=== PATIENT | female | born 1970 | race Caucasian/White ===

== ENCOUNTER 2022-05-05 14:22 | Outpatient (CLI) | payer BC, SELFPAY ==
--- NOTE | 2022-05-05 14:40 | CRLHL7_ITS ---
For Patients: As a result of the Cures Act, medical imaging exams and procedure reports are released immediately into your electronic medical record. You may view this report before your referring provider. If you have questions, please contact your health care provider. BILATERAL SCREENING MAMMOGRAM WITH COMPUTER-AIDED DETECTION AND TOMOSYNTHESIS TECHNIQUE: CC and MLO views were obtained. These mammographic images have been obtained using full-field digital technique. These mammographic images were interpreted with the benefit of computer-aided detection. Breast Tomosynthesis was used in this interpretation. COMPARISON FILM: 01/21/21, 01/18/20, 01/05/19. FINDINGS: There are scattered areas of fibroglandular density IMPRESSION: There is no radiographic evidence for malignancy. ASSESSMENT: BI-RADS Category 1: Negative RECOMMENDATION: Routine screening mammogram in 1 year. A lay language report of this examination will be provided to the patient. Tommie Bobo M.D. Diagnostic Radiologist [email or web address] AMIE/[email or web address] / be/Dictated by: Tommie Bobo MD @ 05/06/2022 12:39:00 PM (Electronically Signed)
== END 2022-05-05 14:23 | disposition home or self-care (01) ==
LOC: MAMMO 14:22
PROVIDERS: PCP Family Medicine; Visit Provider Registered Nurse
DX: Z12.31 Encounter for screening mammogram for malignant neoplasm of breast (principal)
CPT/HCPCS: 77063; 77067

== ENCOUNTER 2023-05-06 15:24 | Outpatient (CLI) | payer BC, SELFPAY ==
--- NOTE | 2023-05-06 15:40 | CRLHL7_ITS ---
For Patients: As a result of the Cures Act, medical imaging exams and procedure reports are released immediately into your electronic medical record. You may view this report before your referring provider. If you have questions, please contact your health care provider. BILATERAL SCREENING MAMMOGRAM WITH COMPUTER-AIDED DETECTION AND TOMOSYNTHESIS TECHNIQUE: CC and MLO views were obtained. These mammographic images have been obtained using full-field digital technique. These mammographic images were interpreted with the benefit of computer-aided detection. Breast Tomosynthesis was used in this interpretation. COMPARISON FILM: 01/21/21, 01/18/20, 01/05/19. FINDINGS: There are scattered areas of fibroglandular density IMPRESSION: There is no radiographic evidence for malignancy. ASSESSMENT: BI-RADS Category 1: Negative RECOMMENDATION: Routine screening mammogram in 1 year. A lay language report of this examination will be provided to the patient. Tommie Bobo M.D. Diagnostic Radiologist [email or web address] Transcribed: 6:07 p.[email or web address] moore/Dictated by: Tommie Bobo MD @ 05/07/2023 12:15:00 PM (Electronically Signed)
== END 2023-05-06 15:25 | disposition home or self-care (01) ==
LOC: MAMMO 15:26
PROVIDERS: PCP Family Medicine; Visit Provider Family Medicine
DX: Z12.31 Encounter for screening mammogram for malignant neoplasm of breast (principal)
CPT/HCPCS: 77063; 77067

== ENCOUNTER 2024-05-10 15:31 | Outpatient (CLI) | payer BC, SELFPAY | END 2024-05-10 15:32 | disposition home or self-care (01) | LOC: NFLDREF 15:32 | PROVIDERS: PCP Family Medicine; Visit Provider Registered Nurse | DX: Z01.419 Encounter for gynecological examination (general) (routine) without abnormal findings (principal); Z13.29 Encounter for screening for other suspected endocrine disorder | CPT/HCPCS: 84443 ==

== ENCOUNTER 2024-05-16 18:17 | Outpatient (CLI) | payer BC, SELFPAY ==
--- NOTE | 2024-05-16 18:20 | CRLHL7_ITS ---
For Patients: As a result of the Century Cures Act, medical imaging exams and procedure reports are released immediately into your electronic medical record. You may view this report before your referring provider. If you have questions, please contact your health care provider. BILATERAL SCREENING MAMMOGRAM WITH COMPUTER-AIDED DETECTION AND TOMOSYNTHESIS TECHNIQUE: CC and MLO views were obtained. These mammographic images have been obtained using full-field digital technique. These mammographic images were interpreted with the benefit of computer-aided detection. Breast Tomosynthesis was used in this interpretation. COMPARISON FILM: 05/06/23, 05/05/22, 04/21/21. FINDINGS: There are scattered areas of fibroglandular density. IMPRESSION: There is no radiographic evidence for malignancy. ASSESSMENT: BI-RADS Category 1: Negative RECOMMENDATION: Routine screening mammogram in 1 year. A lay language report of this examination will be provided to the patient. Tommie Bobo M.D. Diagnostic Radiologist [email or web address] SP/Dictated by: Tommie Bobo MD @ 05/17/2024 11:40:00 AM (Electronically Signed)
== END 2024-05-16 18:18 | disposition home or self-care (01) ==
LOC: MAMMO 18:21
PROVIDERS: PCP Physician Assistant Medical; Visit Provider Physician Assistant Medical
DX: Z12.31 Encounter for screening mammogram for malignant neoplasm of breast (principal)
CPT/HCPCS: 77063; 77067

== ENCOUNTER 2024-06-01 14:53 | Outpatient (CLI) | payer BC, SELFPAY ==
--- NOTE | 2024-06-01 15:00 | CRLHL7_ITS ---
For Patients: As a result of the Century Cures Act, medical imaging exams and procedure reports are released immediately into your electronic medical record. You may view this report before your referring provider. If you have questions, please contact your health care provider. DXA BONE MINERAL DENSITY STUDY Reason for exam: Family history of osteoporosis. Current height (in): 67. Weight (lb): 155. Menopause age: 43. Ethnicity: White. 1. Have you had a previous hip or vertebral fracture? Yes. 2. Have you had any fractures during your adult life which did not result from significant trauma (e.g., auto accident)? Yes. 3. Did either of your parents have a hip fracture? No. 4. Do you smoke? No. 5. Have you ever taken Glucocorticoids? No. 6. Do you have rheumatoid arthritis? No. 7. Do you have secondary osteoporosis? No. 8. Do you drink 3 or more alcoholic drinks per day? No. 9. Are you being treated for osteoporosis? No. 10. Have you ever taken any of the following medications: Actonel, Evista, Fosamax, Miacalcin, Reclast, Boniva, Forteo, HRT (i.e. estrogen/hormone therapy), Protelos, Prolia, Vitamin D, Calcium, other ??? please specify. ANSWER: Yes, Vitamin D and calcium. 11. Do you have any of the following medical conditions: Anorexia or bulimia, asthma or emphysema, end stage renal disease, hyperparathyroidism, any seizure disorders, cancer, inflammatory bowel diseases, hysterectomy, other ??? please specify. ANSWER: No. 12. What was your maximum height (inches)? 68. 13. Do you perform weight bearing exercise regularly? Yes. 14. Do you regularly consume dairy products? Yes. 15. Do you drink caffeinated beverages? No. 16. At what age did your period start? 13. 17. Are you premenopausal? No. 18. How many full term pregnancies have you had? 2. 19. Have you ever missed your period for more than 6 months in a row (not including or menopause)? Yes. TECHNIQUE: Bone mineral density study was performed using the scroll kit. FINDINGS: The results of the study expressed as bone mineral density (BMD) are as follows: Lumbar spine L1 to L4: BMD: 0.920 g/cm2. T-score: -1.2. Z-score: 0.0. Neck Left: BMD: 1.074 g/cm2. T-score: 2.0. Z-score: 3.1. Right: BMD: 0.845 g/cm2. T-score: -0.0. Z-score: 1.1. Total Left: BMD: 1.021 g/cm2. T-score: 0.6. Z-score: 1.4. Right: BMD: 0.972 g/cm2. T-score: 0.2. Z-score: 1.0. IMPRESSION: Osteopenia. *Comparison exams done prior to 01/2020 were performed on different unit, [facility]. Tommie Bobo M.D. Diagnostic Radiologist [email or web address] SP/Dictated by: Tommie Bobo MD @ 06/02/2024 12:09:00 PM (Electronically Signed)
== END 2024-06-01 14:54 | disposition home or self-care (01) ==
LOC: RAD 14:54
PROVIDERS: PCP Physician Assistant Medical; Visit Provider Registered Nurse
DX: Z82.69 Family history of other diseases of the musculoskeletal system and connective tissue (principal); M85.89 Other specified disorders of bone density and structure, multiple sites
CPT/HCPCS: 77080

== ENCOUNTER 2024-10-16 05:19 | Inpatient (IN) | payer BC, SELFPAY ==
[2024-10-16] VITALS (26 sets, daily range): BP systolic 94–136; BP diastolic 56–84; PULSE 54–75; RESP 16–20; TEMP 36.8–36.9; O2SAT 94–100; BMI 23.5; BMI 24.2
[2024-10-16 05:36] LABS: Appearance Urine Clear (Clear); Bilirubin Urine Negative (Negative); Blood Urine Negative (Negative); Color Urine Yellow (Yellow); Glucose Urine Negative (Negative); Ketones Urine Trace (Negative); Leukocyte Esterase Urine Negative (Negative); Nitrite Urine Negative (Negative); Protein Urine Negative (Negative); Specific Gravity Urine <= 1.005 (1.000-1.030); Urobilinogen Urine 0.2 (0.2-1.0); pH Urine 5.5 (5.0-8.5)
[2024-10-16 05:46] LABS: Bacteria Urine Few; RBC Urine 0-2 (0-2); Squamous Epithelial Cell Urine Few (None-Few)
--- NOTE | 2024-10-16 05:48 | ED.GENADULT ---
HPI - General Adult General Chief complaint: Abdominal Pain Stated complaint: lower abdominal pain Time Seen by Provider: 10/16/24 05:47 History of Present Illness HPI narrative: CC: Lower Abdominal Pain pt. had pancreas ultrasound at [facility] october. started having bad pain last night. denies n/v, diarrhea, fevers. h/o diverticulitis also. 54-year-old woman presenting to the emergency department with concern marked increase in abdominal pain. She indicates left mid to low abdomen. 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 Ultimately receiving pancreatic biopsies which have not been formally resulted but suspected to be benign. She reports relatively well since biopsies nearly 4 days ago until last night with marked increase in pain. Prior to this significant increase was struggling to eat has would experiencing bloating and increased discomfort on her mild diet. Not had fever. She is nauseated. Has not been vomiting. Also suspect some constipation. No hematochezia or melena described. Hurts in particular sleep on her left side. Related Data Home Medications ?Medication ?Instructions ?Recorded ?Confirmed No Known Home Medications 10/16/24 10/16/24 Allergies Allergy/AdvReac Type Severity Reaction Status Date / Time morphine Allergy Unknown Verified 10/16/24 06:41 Review of Systems Status of ROS: Reports: 6 or more systems reviewed and unremarkable except as noted in History and below [facility] Medical History Diverticulitis ?K57.92 - Diverticulitis of intestine, part unspecified, without perforation or abscess without bleeding (ICD-10) History of abnormal cervical Pap smear ?Z87.42 - Personal history of other diseases of the female genital tract (ICD-10) Surgical History S/P cholecystectomy ?Z90.49 - Acquired absence of other specified parts of digestive tract (ICD-10) Family History Father Alcohol dependence Mother Osteoporosis Cervical cancer Uterine cancer Family/Other Heart disease Breast cancer Grandmother Osteoporosis Other Sleep apnea Social History Narrative: She works for the [email or web address]. Exercises 3 times a week. . Nonsmoker. Occasional alcohol use, denies illicit drug use What is your current living situation?: I presently have a place to live Problems where you live: no known problems In the past 12 months, utilities in danger of being shut off: no In past 12 months, lack of transportation kept you from medical appts, meetings, work, or getting things needed for daily living: no In the past 12 mos, have been you worried that your food would run out before you had money to buy more?: never true In the past 12 mos, the food you bought just didn't last and you didn't have money to buy more?: never true Smoking Status: Never smoker Second hand tobacco smoke exposure: No How often do you have a drink containing alcohol: never AUDIT-C Alcohol total score: 0 Non-prescribed substance use: denies use How often does anyone, including family, friends and others, physically hurt you: never How often does anyone, including family, friends and others, insult or talk down to you: never How often does anyone, including family, friends and others, threaten you with harm: never How often does anyone, including family, friends and others, scream or curse at you: never Exam Narrative: Exam Narrative: Pleasant. Calm. NAD. Skin is warm and dry. Well-perfused peripherally. No lower extremity edema. Lungs appear to be clear. Heart in regular rate and rhythm the murmur rub or gallop. Abdomen is soft and she winces, gasps a little with palpation in the epigastrium and a little bit into the right upper abdomen/hypogastrium. Pain also in the left mid abdomen to palpation. Const: Vital Signs, click to edit/add: Vital Signs - 24 hr 10/16/24 05:39 10/16/24 06:14 10/16/24 06:19 Temperature 98.4 F 98.4 F Pulse Rate 62 Pulse Rate [Right Pulse Oximeter] 75 Respiratory Rate 18 18 Blood Pressure 117/78 Blood Pressure [Ri ght Upper Arm] 136/83 Pulse Oximetry 99 97 Oxygen Delivery Me thod Room Air 10/16/24 06:44 Temperature Pulse Rate 62 Pulse Rate [Right Pulse Oximeter] Respiratory Rate 18 Blood Pressure 113/74 Blood Pressure [Ri ght Upper Arm] Pulse Oximetry 99 Oxygen Delivery Me thod Documenting provider has reviewed patient's vital signs: yes Course Vital Signs Vital signs: Initial Vital Signs Temperature 98.4 F 10/16/24 05:39 Temperature Source Temporal Artery Scan 10/16/24 05:39 Pulse Rate 75 10/16/24 05:39 Respiratory Rate 18 10/16/24 05:39 Blood Pressure 136/83 10/16/24 05:39 Blood Pressure Mean 100 10/16/24 05:39 Blood Pressure Position Sitting 10/16/24 05:39 Pulse Oximetry 99 10/16/24 05:39 Oxygen Delivery Method Room Air 10/16/24 05:39 Vital Signs Temperature 98.4 F 10/16/24 05:39 Pulse Rate 75 10/16/24 05:39 Respiratory Rate 18 10/16/24 05:39 Blood Pressure 136/83 10/16/24 05:39 Pulse Oximetry 99 10/16/24 05:39 Oxygen Delivery Method Room Air 10/16/24 05:39 Temperature 98.4 F 10/16/24 06:14 Pulse Rate 62 10/16/24 06:44 Respiratory Rate 18 10/16/24 06:44 Blood Pressure 113/74 10/16/24 06:44 Pulse Oximetry 99 10/16/24 06:44 Oxygen Delivery Method Room Air 10/16/24 05:39 Medications Administered Medications: Discontinued Medications Generic Name Dose Route Start Last Admin Trade Name Freq PRN Reason Stop Dose Admin Sodium Chloride 1,000 mls @ 1,000 mls/hr 10/16/24 06:01 10/16/24 08:33 0.9 % Sodium Chloride 1000 Ml IV 10/16/24 07:00 Infused .Q1H ONE Infusion Ketorolac Tromethamine 30 mg 10/16/24 06:11 10/16/24 06:14 Ketorolac 30 Mg/Ml Inj IVP 10/16/24 06:12 30 mg ONCE ONE Administration Ondansetron HCl 4 mg 10/16/24 06:01 10/16/24 06:09 Ondansetron 2 Mg/Ml Inj IVP 10/16/24 06:02 4 mg ONCE ONE Administration Medical Decision Making MDM Narrative Medical decision making narrative: Certainly may be having some pancreatitis. I do not think physical exam suggests peritonitis. Also perhaps diverticulitis as she is recalling that the initial pain presentation for diverticulitis was in the left mid abdomen. Would have concerns of postoperative/procedural bleeding in differential as well. Without recent procedure would otherwise consult labs and consider retreating for diverticulitis. Requesting IV contrasted CT imaging of abdomen pelvis Initiating IV fluids and antiemetic. Did not think she initially wanted some pain medication but I think this is primarily because of nausea or otherwise does not feel well from it but was ultimately given dose of ketorolac and upon later reassessment felt markedly improved. Labs generally reassuring though with lipase of 911, perhaps not entirely unexpected. CRP is elevated 2.9. White count was not elevated and hemoglobin was 11.9 INDICATION: Left mid abdominal pain and upper abdominal pain. Recent pancreas biopsy and diverticulitis. COMPARISON: None TECHNIQUE: CT examination of the abdomen and pelvis was performed following the uneventful intravenous administration of 74 cc of Isovue 370. Thin section axial images were obtained from the lung bases through the pubic symphysis. Oral contrast was not administered. Please note that all CT scans at this facility use dose modulation, iterative reconstruction, and/or weight-based dosing when appropriate to reduce radiation dose to as low as reasonably achievable. FINDINGS: LUNG BASES: The lung bases as visualized appear normal.The heart size is normal at the lung bases. LIVER/BILIARY SYSTEM:The liver is normal in size. There is no focal mass. There is mild biliary ductal dilation. This is probably due to reservoir phenomena from prior cholecystectomy. Correlate with LFTs and follow-up as clinically appropriate.The gallbladder is surgically absent. ADRENALS: Normal KIDNEYS, URETERS and BLADDER:The kidneys appear normal. No visible mass, calculus or hydronephrosis. The ureters and bladder as visualized appear normal. SPLEEN:Normal appearance. PANCREAS: There is a lesion in the pancreatic tail measuring about 2.5 centimeters. This is presumably the lesion that was recently biopsied. There is inflammatory change posterior and inferior to the pancreatic body and tail primarily in the lesser sac. This could be due to pancreatitis or could be due to post biopsy change. This area measures about 5.1 by 2.9 by 3.8 centimeters. This does not have a well-formed wall as would be anticipated in a collection. RETROPERITONEUM and MESENTERY: There is no mass, adenopathy or aortic aneurysm. GASTROINTESTINAL SYSTEM: There is no evidence of diverticulitis, colitis, mechanical obstruction, or appendicitis. The small bowel as visualized appears normal.Diverticulosis. No evidence of acute diverticulitis. PELVIS: No mass, adenopathy or free fluid. OSSEOUS STRUCTURES and ABDOMINAL WALL: There is an age-appropriate appearance of the osseous structures.No significant abdominal wall defect. OTHER: No free fluid or free air. IMPRESSION: 1. Mild intra and extrahepatic biliary ductal dilation favored reservoir phenomena from prior cholecystectomy. Correlate with LFTs and follow-up as clinically appropriate. No visible periampullary mass or choledocholithiasis. 2. Pancreatic tail mass measuring 2.5 centimeters. This is presumably the lesion that was recently biopsied as opposed to postbiopsy change. 3. Inflammatory change posterior and inferior to the pancreatic body and tail, primarily in the lesser sac measuring 5.1 x 2.9 x 3.8 centimeters. This could be inflammatory change associated with pancreatitis or could be postprocedural hemorrhage or inflammatory change. No evidence of active bleeding on this examination. No well-formed wall as would be anticipated in a developed/mature collection. 4. Diverticulosis but no evidence of diverticulitis. No evidence of colitis or obstruction. Please note that all CT scans at this facility use dose modulation, iterative reconstruction, and/or weight-based dosing when appropriate to reduce radiation dose to as low as reasonably achievable. Dictated by Levi Arnold MD @ 10/16/2024 6:56:46 AM I did initially reach out to our general surgeon whose attention is required elsewhere at the moment. Did also then call to [facility], Dr. Cordova has been paged to discuss findings in imaging. Images have also been sent up to [facility] system. Anticipating likely discharge. Difficult to advised though is not very tolerant rather light diet already. Did not have antiemetics or pain medication available however and so would make some available if moving to discharge. Medical Records Medical records reviewed: Yes I reviewed the patient's medical records Lab Data Lab results reviewed: Yes I reviewed the patient's lab results Labs: Lab Results 10/16/24 10/16/24 Range/Units 05:30 06:10 WBC 6.84 (4.50-11.00) K/uL RBC 3.93 L (4.00-5.20) m/uL Hgb 11.9 L (12.0-16.0) gm/dL Hct 35.1 (33.0-51.0) % MCV 89 (80-100) fL MCH 30 (26-34) pg MCHC 34 (32-36) gm/dL RDW Coeff of Alexx 11.6 (11.5-15.5) % Plt Count 198 (140-440) K/uL Neut % (Auto) 65.6 (42.0-72.0) % Lymph % (Auto) 22.1 (20-44) % Worth % (Auto) 8.2 (0.0-11.0) % Eos % (Auto) 2.9 (0.0-7.0) % Baso % (Auto) 0.3 (0.0-3.0) % Neut # (Auto) 4.49 (1.7-7.0) K/uL Lymph # (Auto) 1.51 (0.90-2.90) K/uL Worth # (Auto) 0.60 (0.00-0.90) K/UL Eos # (Auto) 0.20 (0.00-0.50) K/uL Baso # (Auto) 0.02 (0.00-0.30) K/uL Abs Immat Gran (auto) 0.06 (0.00-0.30) K/uL Imm/Tot Granulo (auto) 0.9 % Sodium 136 (135-149) mmol/L Potassium 3.8 (3.6-5.1) mmol/L Chloride 102 (96-114) mmol/L Carbon Dioxide 24 (20-32) mmol/L Anion Gap 10 (7-15) mEq/L BUN 11 (7-30) mg/dL Creatinine 0.6 (0.5-1.5) mg/dL Estimated Creat Clear 101.81 Estimated GFR 105 ml/min Glucose 95 (60-115) mg/dL Calcium 8.9 (8.4-10.6) mg/dL Total Bilirubin 1.5 (0.1-1.5) mg/dL Direct Bilirubin 0.3 (0.0-0.5) mg/dL AST 20 (12-35) U/L ALT 17 (4-35) U/L Alkaline Phosphatase 64 (40-150) U/L C-Reactive Protein 2.9 H (0.5-1.0) mg/dL Total Protein 6.8 (6.0-8.3) g/dL Albumin 3.9 (3.3-5.0) g/dL Lipase 911 H (23-300) U/L Urine Color Yellow (Yellow) Urine Appearance Clear (Clear) Urine pH 5.5 (5.0-8.5) Ur Specific [place] <= 1.005 (1.000-1.030) Urine Protein Negative (Negative) Urine Glucose (UA) Negative (Negative) Urine Ketones Trace A (Negative) Urine Blood Negative (Negative) Urine Nitrite Negative (Negative) Urine Bilirubin Negative (Negative) Urine Urobilinogen 0.2 (0.2-1.0) Ur Leukocyte Esterase Negative (Negative) Urine RBC 0-2 (0-2) Urine WBC 2-5 (0-5) Ur Squamous Epith Cells Few (None-Few) Urine Bacteria Few A (None) Discharge Plan Discharge Clinical Impression: Other acute postprocedural pain, Pancreatitis Patient Disposition: Home w/ Parent or Adult Condition: Improved Additional Instructions: Would continue to focus on hydration along with very light diet. Might try electrolyte drinks like reconstituted powdered Gatorade or Powerade. Prescribing Zofran for nausea as well as Percocet, an opiate, from [facility]. Prescriptions: No Action No Known Home Medications Follow Up/Referrals: Valerie Nuñez PA-C [Referring] - Stand Alone Forms: [employer] Info Instructions
[2024-10-16] MEDS: ONDANSETRON 2 MG/ML inj 4 MG IVP ×2 (06:09→20:05)
[2024-10-16] MEDS: 0.9 % SODIUM CHLORIDE 1000 ml 1,000 ML IV (06:09)
[2024-10-16] MEDS: KETOROLAC 30 MG/ML inj IVP ×3 (06:14→18:43)
[2024-10-16 06:22] LABS: Basophils Absolute Auto 0.02 K/uL (0.00-0.30); Basophils Percent Auto 0.3 % (0.0-3.0); Eosinophils Percent Auto 2.9 % (0.0-7.0); Hematocrit 35.1 % (33.0-51.0); Hemoglobin* 11.9 gm/dL (12.0-16.0); Immature Granulocytes Abs Auto 0.06 K/uL (0.00-0.30); Immature Granulocytes Pct Auto 0.9 %; Lymphocytes Absolute Auto 1.51 K/uL (0.90-2.90); Lymphocytes Percent Auto 22.1 % (20-44); Mean Corpuscular HGB Conc 34 gm/dL (32-36); Mean Corpuscular Hemoglobin 30 pg (26-34); Mean Corpuscular Volume 89 fL (80-100); Monocytes Percent Auto 8.2 % (0.0-11.0); Neutrophils Absolute Auto 4.49 K/uL (1.7-7.0); Neutrophils Percent Auto 65.6 % (42.0-72.0); Platelet Count* 198 K/uL (140-440); RDW Coefficient of Variation % 11.6 % (11.5-15.5); Red Blood Count 3.93 m/uL (4.00-5.20); White Blood Count* 6.84 K/uL (4.50-11.00)
[2024-10-16 06:25] LABS: Slide Review Reflex No
[2024-10-16 06:31] LABS: Albumin* 3.9 g/dL (3.3-5.0); Chloride* 102 mmol/L (96-114)
[2024-10-16 06:32] LABS: Potassium* 3.8 mmol/L (3.6-5.1); Sodium* 136 mmol/L (135-149)
[2024-10-16 06:34] LABS: Blood Urea Nitrogen* 11 mg/dL (7-30); Creatinine* 0.6 mg/dL (0.5-1.5); Est. Creatinine Clearance* 101.81; Estimated Glomerular Filt Rate 105 ml/min
[2024-10-16 06:35] LABS: Alanine Aminotransferase* 17 U/L (4-35); Alkaline Phosphatase* 64 U/L (40-150); Anion Gap 10 mEq/L (7-15); Aspartate Amino Transferase* 20 U/L (12-35); Bilirubin Direct* 0.3 mg/dL (0.0-0.5); Bilirubin Total* 1.5 mg/dL (0.1-1.5); Calcium* 8.9 mg/dL (8.4-10.6); Carbon Dioxide* 24 mmol/L (20-32); Glucose* 95 mg/dL (60-115); Lipase* 911 U/L (23-300); Total Protein* 6.8 g/dL (6.0-8.3)
[2024-10-16 06:38] LABS: C Reactive Protein* 2.9 mg/dL (0.5-1.0)
[2024-10-16] MEDS: LACTATED RINGERS 1000 ML 1,000 ML IV (09:05)
--- NOTE | 2024-10-16 12:56 | PM.IMHP1 ---
Hospitalist- H&P: HPI History of Present Illness Time Seen by Provider: 12:25 Date Seen: 10/16/24 Chief complaint: lower abdominal pain Narrative: Kayla Oconnell is a 54 year old female with a history of diverticulitis and pancreatic ductal stricture with localized atrophy who recently underwent endoscopic ultrasound and biopsy on 10/12/2024 at [facility] by Dr. Cordova. Anthony is a previously healthy female who had a laparoscopic cholecystectomy in 1986, diverticulitis about 6 years ago and then recurrent diverticulitis about a month ago. On the CT scan done for diverticulitis about a month ago, pancreatic stricture was seen for which she had an MRCP. There is also a small mass is seen for which she then underwent biopsy by endoscopic ultrasound as above. She felt very constipated Wednesday and Wednesday. She did have a small bowel movement on Wednesday and has had not had anything substantial to eat or drink since her procedure because any time she eats, she immediately feels very bloated. She has had a constant 4/10 pain in her epigastrium and left lower quadrant since the procedure. She has had mild nausea, but no vomiting. Denies diarrhea. She has not had any fevers, but does have chills and night sweats. Sitting up puts pressure on her abdomen which feels worse. She has not found anything that makes it better. She notes a history of nausea and feeling very unwell when taking morphine when she had her gallbladder out, but has not tried any other narcotics. She is agreeable to Dilaudid as needed, but does not think that she will try any of it. She notes that the Toradol she got in the ER seemed to help and would like more of that. Review of Systems Status of ROS: Reports: 10 or more systems reviewed and unremarkable except as noted in History and below [facility] Medical History (Updated 10/16/24 @ 13:31 by Kim Tineo MD) Pancreatic mass ?K86.89 - Other specified diseases of pancreas (ICD-10) Pancreatic duct stricture ?K86.89 - Other specified diseases of pancreas (ICD-10) Diverticulitis ?K57.92 - Diverticulitis of intestine, part unspecified, without perforation or abscess without bleeding (ICD-10) History of abnormal cervical Pap smear ?Z87.42 - Personal history of other diseases of the female genital tract (ICD-10) Surgical History S/P cholecystectomy ?Z90.49 - Acquired absence of other specified parts of digestive tract (ICD-10) Family History Father Alcohol dependence Mother Osteoporosis Cervical cancer Uterine cancer Family/Other Heart disease Breast cancer Grandmother Osteoporosis Other Sleep apnea Social History Narrative: She works for [employer]. Exercises 3 times a week. . Nonsmoker. Occasional alcohol use, denies illicit drug use What is your current living situation?: I presently have a place to live Problems where you live: no known problems Problems where you live details: none In the past 12 months, utilities in danger of being shut off: no In past 12 months, lack of transportation kept you from medical appts, meetings, work, or getting things needed for daily living: no In the past 12 mos, have been you worried that your food would run out before you had money to buy more?: never true In the past 12 mos, the food you bought just didn't last and you didn't have money to buy more?: never true Highest level of school completed/degree received: Bachelor's degree Smoking Status: Never smoker Do you use any of these nicotine containing products: None Second hand tobacco smoke exposure: No How often do you have a drink containing alcohol: 2-4 times a month AUDIT-C Alcohol total score: 2 Non-prescribed substance use: denies use Caffeine: Yes (cup or two coffee in morning) How often does anyone, including family, friends and others, physically hurt you: never How often does anyone, including family, friends and others, insult or talk down to you: never How often does anyone, including family, friends and others, threaten you with harm: never How often does anyone, including family, friends and others, scream or curse at you: never service: No Meds Home Medications and Allergies Home Medications ?Medication ?Instructions ?Recorded ?Confirmed ?Type No Known Home Medications 10/16/24 10/16/24 History Allergies Allergy/AdvReac Type Severity Reaction Status Date / Time morphine Allergy Unknown Verified 10/16/24 06:41 Exam Narrative: Exam Narrative: General: No acute distress. Awake alert oriented x3. HEENT: Normocephalic atraumatic, pupils equally round and reactive to light and accommodation. Oropharynx clear. Mucous membranes are moist. No cervical lymphadenopathy, thyromegaly or carotid bruits. No JVD. Cardiovascular: Regular rate and rhythm. No murmurs, gallops, or rubs. Chest: No increased work of breathing. Clear to auscultation bilaterally. No crackles or wheezes. Abdomen: Bowel sounds hypoactive. Soft, mildly distended, tender in the epigastrium and left lower quadrant. No hepatosplenomegaly or masses. No inguinal lymphadenopathy. Extremities: No edema, no cyanosis or clubbing. Skin: No jaundice, no pallor, no rashes. Const: Vital Signs, click to edit/add: Vital Signs - 24 hr 10/16/24 05:39 10/16/24 06:14 10/16/24 06:19 Temperature 98.4 F 98.4 F Pulse Rate 62 Pulse Rate [Right Pulse Oximeter] 75 Pulse Rate [Right Radial] Respiratory Rate 18 18 Blood Pressure 117/78 Blood Pressure [Ri ght Arm] Blood Pressure [Ri ght Upper Arm] 136/83 Pulse Oximetry 99 97 [facility] 10/16/24 06:44 10/16/24 07:00 10/16/24 07:02 Temperature Pulse Rate 62 55 L 57 L Pulse Rate [Right Pulse Oximeter] Pulse Rate [Right Radial] Respiratory Rate 18 Blood Pressure 113/74 100/61 Blood Pressure [Ri ght Arm] Blood Pressure [Ri ght Upper Arm] Pulse Oximetry 99 96 97 Oxygen Delivery Tn thod 10/16/24 07:15 10/16/24 07:30 10/16/24 07:45 Temperature Pulse Rate 57 L 55 L 54 L Pulse Rate [Right Pulse Oximeter] Pulse Rate [Right Radial] Respiratory Rate Blood Pressure Blood Pressure [Ri ght Arm] Blood Pressure [Ri ght Upper Arm] Pulse Oximetry 96 96 94 Oxygen Delivery Tn thod 10/16/24 08:00 10/16/24 08:02 10/16/24 08:15 Temperature Pulse Rate 60 57 L 56 L Pulse Rate [Right Pulse Oximeter] Pulse Rate [Right Radial] Respiratory Rate Blood Pressure 102/59 L Blood Pressure [Ri ght Arm] Blood Pressure [Ri ght Upper Arm] Pulse Oximetry 97 96 95 Oxygen Delivery Me thod 10/16/24 08:30 10/16/24 08:45 10/16/24 09:00 Temperature Pulse Rate 55 L 62 57 L Pulse Rate [Right Pulse Oximeter] Pulse Rate [Right Radial] Respiratory Rate Blood Pressure Blood Pressure [Ri ght Arm] Blood Pressure [Ri ght Upper Arm] Pulse Oximetry 97 96 97 Oxygen Delivery Me thod 10/16/24 09:02 10/16/24 09:15 10/16/24 09:30 Temperature Pulse Rate 55 L 56 L 55 L Pulse Rate [Right Pulse Oximeter] Pulse Rate [Right Radial] Respiratory Rate Blood Pressure 104/62 Blood Pressure [Ri ght Arm] Blood Pressure [Ri ght Upper Arm] Pulse Oximetry 97 98 100 Oxygen Delivery Tn thod 10/16/24 09:45 10/16/24 10:00 10/16/24 10:02 Temperature Pulse Rate 59 L 56 L 58 L Pulse Rate [Right Pulse Oximeter] Pulse Rate [Right Radial] Respiratory Rate Blood Pressure 108/64 Blood Pressure [Ri ght Arm] Blood Pressure [Ri ght Upper Arm] Pulse Oximetry 96 99 99 Oxygen Delivery Tn thod 10/16/24 10:15 10/16/24 10:30 10/16/24 12:12 Temperature 98.5 F Pulse Rate 55 L 66 Pulse Rate [Right Pulse Oximeter] Pulse Rate [Right Radial] 57 L Respiratory Rate 20 Blood Pressure Blood Pressure [Ri ght Arm] 122/84 Blood Pressure [Ri ght Upper Arm] Pulse Oximetry 99 99 100 [facility] Hospitalist - H&P: Result Labs Labs: Short CBC 10/16/24 Range/Units 06:10 WBC 6.84 (4.50-11.00) K/uL Hgb 11.9 L (12.0-16.0) gm/dL Hct 35.1 (33.0-51.0) % Plt Count 198 (140-440) K/uL BMP 10/16/24 06:10 Sodium 136 Potassium 3.8 Chloride 102 Carbon Dioxide 24 BUN 11 Creatinine 0.6 Glucose 95 Calcium 8.9 Liver Function 10/16/24 Range/Units 06:10 Total Bilirubin 1.5 (0.1-1.5) mg/dL Direct Bilirubin 0.3 (0.0-0.5) mg/dL AST 20 (12-35) U/L ALT 17 (4-35) U/L Alkaline Phosphatase 64 (40-150) U/L Albumin 3.9 (3.3-5.0) g/dL Urine 10/16/24 Range/Units 05:30 Urine Color Yellow (Yellow) Urine Appearance Clear (Clear) Urine pH 5.5 (5.0-8.5) Ur Specific [place] <= 1.005 (1.000-1.030) Urine Protein Negative (Negative) Urine Glucose (UA) Negative (Negative) Ordering Physician: Tommie Gross M.D. Date of Service: 10/16/24 Procedure(s): CT abdomen pelvis w con Accession Number(s): [id number] cc: Germán Barlow M.D.; Tommie Gross M.D.~ For Patients: As a result of the Cures Act, medical imaging exams and procedure reports are released immediately into your electronic medical record. You may view this report before your referring provider. If you have questions, please contact your health care provider. INDICATION: Left mid abdominal pain and upper abdominal pain. Recent pancreas biopsy and diverticulitis. COMPARISON: None TECHNIQUE: CT examination of the abdomen and pelvis was performed following the uneventful intravenous administration of 74 cc of Isovue 370. Thin section axial images were obtained from the lung bases through the pubic symphysis. Oral contrast was not administered. Please note that all CT scans at this facility use dose modulation, iterative reconstruction, and/or weight-based dosing when appropriate to reduce radiation dose to as low as reasonably achievable. FINDINGS: LUNG BASES: The lung bases as visualized appear normal.The heart size is normal at the lung bases. LIVER/BILIARY SYSTEM:The liver is normal in size. There is no focal mass. There is mild biliary ductal dilation. This is probably due to reservoir phenomena from prior cholecystectomy. Correlate with LFTs and follow-up as clinically appropriate.The gallbladder is surgically absent. ADRENALS: Normal KIDNEYS, URETERS and BLADDER:The kidneys appear normal. No visible mass, calculus or hydronephrosis. The ureters and bladder as visualized appear normal. SPLEEN:Normal appearance. PANCREAS: There is a lesion in the pancreatic tail measuring about 2.5 centimeters. This is presumably the lesion that was recently biopsied. There is inflammatory change posterior and inferior to the pancreatic body and tail primarily in the lesser sac. This could be due to pancreatitis or could be due to post biopsy change. This area measures about 5.1 by 2.9 by 3.8 centimeters. This does not have a well-formed wall as would be anticipated in a collection. RETROPERITONEUM and MESENTERY: There is no mass, adenopathy or aortic aneurysm. GASTROINTESTINAL SYSTEM: There is no evidence of diverticulitis, colitis, mechanical obstruction, or appendicitis. The small bowel as visualized appears normal.Diverticulosis. No evidence of acute diverticulitis. PELVIS: No mass, adenopathy or free fluid. OSSEOUS STRUCTURES and ABDOMINAL WALL: There is an age-appropriate appearance of the osseous structures.No significant abdominal wall defect. OTHER: No free fluid or free air. IMPRESSION: 1. Mild intra and extrahepatic biliary ductal dilation favored reservoir phenomena from prior cholecystectomy. Correlate with LFTs and follow-up as clinically appropriate. No visible periampullary mass or choledocholithiasis. 2. Pancreatic tail mass measuring 2.5 centimeters. This is presumably the lesion that was recently biopsied as opposed to postbiopsy change. 3. Inflammatory change posterior and inferior to the pancreatic body and tail, primarily in the lesser sac measuring 5.1 x 2.9 x 3.8 centimeters. This could be inflammatory change associated with pancreatitis or could be postprocedural hemorrhage or inflammatory change. No evidence of active bleeding on this examination. No well-formed wall as would be anticipated in a developed/mature collection. 4. Diverticulosis but no evidence of diverticulitis. No evidence of colitis or obstruction. Please note that all CT scans at this facility use dose modulation, iterative reconstruction, and/or weight-based dosing when appropriate to reduce radiation dose to as low as reasonably achievable. Dictated by Levi Arnold MD @ 10/16/2024 6:56:46 AM (Electronically Signed) Assessment and Plan Assessment and plan (1) Pancreatitis: Problem comment: - Post procedural pancreatitis from EUS with biopsy on 10/12/24 - complicated by known pancreatic ductal stricture - Admit for bowel rest, IVF: NS@75cc/h, IV toradol and hydromorphone prn pain, IV zofran prn nausea. Anticipate will be able to advance to clears tomorrow morning. Recheck CBC, CMP in am. Status: Acute
[2024-10-16] MEDS: 0.9 % SODIUM CHLORIDE 1000 ml 1,000 ML 150 ML IV ×2 (14:29→20:05)
[2024-10-16] MEDS: HYDROmorphone 0.5 mg/0.5 ml inj IVP (20:05)
--- NOTE | 2024-10-16 22:59 | PC.NURSE ---
Patient awake during the shift. Up, ambulating the halls independently. Pain adequately managed with scheduled medications. Patient requested PRN pain medication prior to bedtime. PRN zofran given as well, but patient denies nausea/vomiting. PAtient NPO. Vitally stable.
[2024-10-17] MEDS: HYDROmorphone 0.5 mg/0.5 ml inj IVP ×2 (00:58→06:23)
[2024-10-17 01:00] VITALS: BP 118/65; PULSE 75; RESP 16; TEMP 36.8; O2SAT 99
[2024-10-17] MEDS: 0.9 % SODIUM CHLORIDE 1000 ml 1,000 ML 150 ML IV ×2 (02:32→09:20)
[2024-10-17] MEDS: KETOROLAC 30 MG/ML inj IVP (02:33)
[2024-10-17 06:20] VITALS: BP 99/52; PULSE 63; RESP 16; TEMP 36.5; O2SAT 100
[2024-10-17 06:40] LABS: Basophils Absolute Auto 0.02 K/uL (0.00-0.30); Basophils Percent Auto 0.4 % (0.0-3.0); Eosinophils Percent Auto 3.5 % (0.0-7.0); Hematocrit 30.8 % (33.0-51.0); Hemoglobin* 10.1 gm/dL (12.0-16.0); Immature Granulocytes Abs Auto 0.01 K/uL (0.00-0.30); Immature Granulocytes Pct Auto 0.2 %; Lymphocytes Absolute Auto 1.58 K/uL (0.90-2.90); Mean Corpuscular HGB Conc 33 gm/dL (32-36); Mean Corpuscular Hemoglobin 30 pg (26-34); Mean Corpuscular Volume 93 fL (80-100); Monocytes Percent Auto 8.7 % (0.0-11.0); Neutrophils Absolute Auto 3.35 K/uL (1.7-7.0); Neutrophils Percent Auto 59.2 % (42.0-72.0); Platelet Count* 149 K/uL (140-440); RDW Coefficient of Variation % 11.7 % (11.5-15.5); Red Blood Count 3.32 m/uL (4.00-5.20); White Blood Count* 5.65 K/uL (4.50-11.00)
[2024-10-17 06:41] LABS: Slide Review Reflex No
[2024-10-17 06:50] LABS: Albumin* 3.1 g/dL (3.3-5.0); Chloride* 108 mmol/L (96-114); Potassium* 4.1 mmol/L (3.6-5.1); Sodium* 137 mmol/L (135-149)
[2024-10-17 06:52] LABS: Anion Gap 7 mEq/L (7-15); Bilirubin Total* 1.2 mg/dL (0.1-1.5); Blood Urea Nitrogen* 12 mg/dL (7-30); Carbon Dioxide* 22 mmol/L (20-32); Creatinine* 0.6 mg/dL (0.5-1.5); Est. Creatinine Clearance* 101.81; Estimated Glomerular Filt Rate 105 ml/min
[2024-10-17 06:53] LABS: Alanine Aminotransferase* 29 U/L (4-35); Alkaline Phosphatase* 85 U/L (40-150); Aspartate Amino Transferase* 41 U/L (12-35); Glucose* 60 mg/dL (60-115); Total Protein* 5.6 g/dL (6.0-8.3)
[2024-10-17 07:00] VITALS: BP 104/55; PULSE 60; RESP 20; TEMP 36.8; O2SAT 96
--- NOTE | 2024-10-17 07:09 | PC.NURSE ---
End of shift summary: Pt has been A&O, afebrile and VSS. She reported pain in between a 2-4 in the left upper quadrant overnight. PRN Dilaudid given x2 doses, last @ 0620 and PRN Toradol given last @ 0230. PIV in right wrist infusing NS @ 150 mL/hr. She is independent in her room. Adequate voids overnight, no BM. Pt reports no passing gas. She denies nausea or dizziness. ?
--- NOTE | 2024-10-17 11:02 | PM.IMPN1 ---
Progress Note: A&P Assessment and plan (1) Pancreatitis: Problem details: - Post procedural pancreatitis from EUS with biopsy on 10/12/24 - complicated by known pancreatic ductal stricture - 10/16 Admit for bowel rest, IVF: NS@150cc/h, IV toradol and hydromorphone prn pain, IV zofran prn nausea. Anticipate will be able to advance to clears tomorrow morning. Recheck CBC, CMP in am. - 10/17 Advance diet to clears this morning and to fulls later today if able. Decrease IVF to 75cc/hr. Continue prn meds for nausea and pain. Encourage ambulation. Status: Acute (2) LFTs abnormal: Problem details: - 10/17 mildly elevated AST. May be related to post procedure pancreatitis and being NPO. I have reviewed her meds. Trend. Status: Acute Subjective Time Seen by Provider: 09:15 Date Seen: 10/17/24 Interval history: Anthony used two doses of narcotic last night and felt less painful enough to get a good night's sleep. She is feeling much better this morning. She is thirsty, not hungry, feels less bloated and less sharp pain, but still has a feeling of pressure in her epigastrium and LUQ. She notes persistently dark urine. She has ambulated in the hallway. No BM yet. Exam Narrative: Exam Narrative: General: No acute distress. Awake alert oriented. No jaundice. No pallor. Cardiovascular: Regular rate and rhythm. No murmurs, gallops, or rubs. Chest: No increased work of breathing. Clear to auscultation bilaterally. No crackles or wheezes. Abdomen: Bowel sounds present. Soft, less distended, mildly tender in the epigastrium and left lower quadrant, less than yesterday. No hepatosplenomegaly or masses. Const: Vital Signs, click to edit/add: Vital Signs - 24 hr 10/16/24 12:12 10/16/24 15:00 10/16/24 15:00 Temperature 98.5 F Pulse Rate [Pulse Oximeter] Pulse Rate [Right Radial] 57 L 60 Respiratory Rate 20 18 18 Blood Pressure [Le ft Arm] Blood Pressure [Ri ght Arm] 122/84 Pulse Oximetry 100 98 Oxygen Delivery Me thod Room Air Room Air 10/16/24 15:00 10/16/24 19:00 10/17/24 01:00 Temperature 98.4 F 98.2 F Pulse Rate [Pulse Oximeter] 75 Pulse Rate [Right Radial] 60 63 Respiratory Rate 18 16 16 Blood Pressure [Le ft Arm] Blood Pressure [Ri ght Arm] 94/56 L 105/56 L Pulse Oximetry 98 98 Oxygen Delivery Me thod Room Air Room Air 10/17/24 01:00 10/17/24 01:00 10/17/24 06:20 Temperature 98.3 F 97.7 F Pulse Rate [Pulse Oximeter] 63 Pulse Rate [Right Radial] 75 Respiratory Rate 16 16 16 Blood Pressure [Le ft Arm] 118/65 99/52 L Blood Pressure [Ri ght Arm] Pulse Oximetry 99 99 100 Oxygen Delivery Me thod Room Air Room Air Room Air 10/17/24 07:00 10/17/24 07:00 10/17/24 07:00 Temperature 98.2 F Pulse Rate [Pulse Oximeter] 60 60 Pulse Rate [Right Radial] Respiratory Rate 20 20 Blood Pressure [Le ft Arm] 104/55 L Blood Pressure [Ri ght Arm] Pulse Oximetry 96 96 Oxygen Delivery Me thod Room Air Room Air Labs Labs: Laboratory Results - last 24 hr 10/17/24 06:03 WBC 5.65 RBC 3.32 L Hgb 10.1 L Hct 30.8 L MCV 93 MCH 30 MCHC 33 RDW Coeff of Alexx 11.7 Plt Count 149 Neut % (Auto) 59.2 Lymph % (Auto) 28.0 [place] % (Auto) 8.7 Eos % (Auto) 3.5 Baso % (Auto) 0.4 Neut # (Auto) 3.35 Lymph # (Auto) 1.58 [place] # (Auto) 0.50 Eos # (Auto) 0.20 Baso # (Auto) 0.02 Abs Immat Gran (auto) 0.01 Imm/Tot Granulo (auto) 0.2 Sodium 137 Potassium 4.1 Chloride 108 Carbon Dioxide 22 Anion Gap 7 BUN 12 Creatinine 0.6 Estimated Creat Clear 101.81 Estimated GFR 105 Glucose 60 Calcium 8.0 L Total Bilirubin 1.2 AST 41 H ALT 29 Alkaline Phosphatase 85 Total Protein 5.6 L Albumin 3.1 L
[2024-10-17 15:00] VITALS: BP 129/59; PULSE 60; PULSE 65; RESP 20; TEMP 36.7; O2SAT 100
[2024-10-17] MEDS: 0.9 % SODIUM CHLORIDE 1000 ml 1,000 ML 75 ML IV ×2 (15:52→18:07)
[2024-10-17] MEDS: ACETAMINOPHEN 500 MG TABLET 1000 MG PO (16:47)
--- NOTE | 2024-10-17 18:36 | PC.NURSE ---
End of Shift Note: Patient has had a good day. We have slowly been advancing her diet. Appears to be going ok she does complain of a little bloating and pain is being controlled with tylenol. She is up and ambulating several times around the nursing unit. Will continue to monitor until next shift arrives.
[2024-10-17 19:44] VITALS: BP 113/65; PULSE 54; RESP 16; TEMP 37; O2SAT 98
--- NOTE | 2024-10-17 22:36 | PC.NURSE ---
Patient alert, awake and vitally stable during the shift. Pain adequately managed with PRN tylenol. Patient tolerating full liquids for diet. Tried mashed potatoes and turkey tonight and did not finish meal due to stomach issues. Up ambulating the halls during the shift. Plan to discharge tomorrow.
[2024-10-17 23:35] VITALS: BP 109/61; PULSE 60; RESP 16; TEMP 36.7; O2SAT 98
[2024-10-18] MEDS: ACETAMINOPHEN 500 MG TABLET 1000 MG PO (01:05)
[2024-10-18 01:10] VITALS: BP 126/68; PULSE 61; RESP 16; TEMP 36.4; O2SAT 100
[2024-10-18 06:15] LABS: Basophils Percent Auto 0.5 % (0.0-3.0); Eosinophils Percent Auto 6.9 % (0.0-7.0); Hematocrit 29.6 % (33.0-51.0); Hemoglobin* 9.8 gm/dL (12.0-16.0); Immature Granulocytes Pct Auto 0.7 %; Lymphocytes Percent Auto 33.8 % (20-44); Mean Corpuscular HGB Conc 33 gm/dL (32-36); Mean Corpuscular Hemoglobin 30 pg (26-34); Mean Corpuscular Volume 91 fL (80-100); Monocytes Percent Auto 8.6 % (0.0-11.0); Neutrophils Percent Auto 49.5 % (42.0-72.0); Platelet Count* 152 K/uL (140-440); RDW Coefficient of Variation % 11.6 % (11.5-15.5); Red Blood Count 3.25 m/uL (4.00-5.20)
[2024-10-18 06:24] LABS: Slide Review Reflex No
[2024-10-18 06:27] LABS: Chloride* 110 mmol/L (96-114); Potassium* 3.9 mmol/L (3.6-5.1); Sodium* 140 mmol/L (135-149)
--- NOTE | 2024-10-18 06:27 | PC.NURSE ---
Pt alert and oriented x3. Pt reports 1/10 pain in abdomen, pain managed with PRN medication.? Pt is up Ind in room, voiding, passing gas and tolerating a clear liquid diet. Pt reports urine color is back to her normal and reports feeling more hydrated. Pt had jello, saltines, marge crackers, and applesauce, pt tolerating fair, pt reports bloating with mild increase in pain. ?
[2024-10-18 06:29] LABS: Anion Gap 4 mEq/L (7-15); Blood Urea Nitrogen* 4 mg/dL (7-30); Carbon Dioxide* 26 mmol/L (20-32); Creatinine* 0.5 mg/dL (0.5-1.5); Est. Creatinine Clearance* 122.17; Estimated Glomerular Filt Rate 110 ml/min
[2024-10-18 06:30] LABS: Alanine Aminotransferase* 66 U/L (4-35); Alkaline Phosphatase* 122 U/L (40-150); Aspartate Amino Transferase* 50 U/L (12-35); Calcium* 8.2 mg/dL (8.4-10.6); Glucose* 102 mg/dL (60-115); Total Protein* 5.5 g/dL (6.0-8.3)
[2024-10-18 07:00] VITALS: BP 125/89; PULSE 59; RESP 18; TEMP 36.6; O2SAT 100
--- NOTE | 2024-10-18 09:14 | P.DS_ITS ---
DS: Providers Provider Date Seen: 10/18/24 Date of admission: 10/16/24 12:56 Primary care physician: Germán Barlow MD Admitting Clinician: Vini Schultz MD Attending Physician on discharge: Kendra Gallagher MD Date of Discharge: 10/18/24 DS: Diagnosis Discharge Diagnosis (1) Pancreatitis: Status: Acute Problem details: - Post procedural pancreatitis from EUS with biopsy on 10/12/24 - complicated by known pancreatic ductal stricture - admitted 10/16 for IVFs, bowel rest, antiemetics, IV pain control - advanced to clear liquid diet 10/17, full liquids later in the day - tolerating low fat diet on 10/18, medically appropriate for d/c home with GI/General Surgery f/u (2) LFTs abnormal: Status: Acute Problem details: - 10/17: mildly elevated AST - 10/18: both AST and ALT mildly elevated, normal bilirubin. Alk phos normal, asymptomatic - unclear clinical significance, outpatient f/u DS: Summary Hospital Course Hospital Course: Kayla was admitted to the hospital on 10/16 for postprocedural pancreatitis (known possible complication of recent biopsy, was in touch with her GI provider, Dr Cordova, postop). Received IV fluids and IV antiemetics, as well as pain management on hospital day 1, then slowly advanced liquid diet on hospital day 2. Noted to have mildly elevated AST and ALT, asymptomatic. Bilirubin and alk-phos normal. Follow-up with PCP to trend these as an outpatient. Tolerating low-fat diet and ready for discharge home on hospital day 3 with close follow-up. Status at Discharge Functional status at discharge: independent ambulation Overall status at discharge: patient is progressing back to baseline Time Spent with Patient Time attestation: Total time spent providing and/or coordinating discharge services: Time spent: Greater than 30 minutes Specific discharge activities: medication reconciliation, review of records, plan of care discussion Exam Narrative: Exam Narrative: GEN: Alert HEENT: EOMIs bilaterally, no scleral icterus CV: RRR, No concerning murmurs R: LCTA bilaterally without concerning wheezing Ab: Mild distension, no rebound or guarding Ext: wwp, no concerning edema Skin: No concerning skin lesions or rashes on exposed skin Neuro: Nonfocal Psych: Appropriate Const: Vital Signs, click to edit/add: Vital Signs - 24 hr 10/17/24 15:00 10/17/24 15:00 10/17/24 15:00 Temperature 98.1 F Pulse Rate [Pulse Oximeter] 60 65 Respiratory Rate 20 20 Blood Pressure [Le ft Arm] Blood Pressure [Ri ght Arm] 129/59 L Pulse Oximetry 100 100 Oxygen Delivery Me thod Room Air Room Air 10/17/24 19:44 10/17/24 23:35 10/17/24 23:35 Temperature 98.6 F 98.0 F Pulse Rate [Pulse Oximeter] 54 L 60 Respiratory Rate 16 16 16 Blood Pressure [Le ft Arm] 113/65 109/61 Blood Pressure [Ri ght Arm] Pulse Oximetry 98 98 98 Oxygen Delivery Me thod Room Air Room Air Room Air 10/18/24 01:10 Temperature 97.6 F Pulse Rate [Pulse Oximeter] 61 Respiratory Rate 16 Blood Pressure [Le ft Arm] 126/68 Blood Pressure [Ri ght Arm] Pulse Oximetry 100 Oxygen Delivery Me thod Room Air DS: Data Data Completed and Pending Labs on day of discharge: Labs from last 24 hours 10/18/24 05:51 WBC 4.20 L RBC 3.25 L Hgb 9.8 L Hct 29.6 L MCV 91 MCH 30 MCHC 33 RDW Coeff of Alexx 11.6 Plt Count 152 Neut % (Auto) 49.5 Lymph % (Auto) 33.8 [place] % (Auto) 8.6 Eos % (Auto) 6.9 Baso % (Auto) 0.5 Neut # (Auto) 2.10 Lymph # (Auto) 1.40 [place] # (Auto) 0.40 Eos # (Auto) 0.30 Baso # (Auto) 0.00 Abs Immat Gran (auto) 0.00 Imm/Tot Granulo (auto) 0.7 Sodium 140 Potassium 3.9 Chloride 110 Carbon Dioxide 26 Anion Gap 4 L BUN 4 L Creatinine 0.5 Estimated Creat Clear 122.17 Estimated GFR 110 Glucose 102 Calcium 8.2 L Total Bilirubin 1.0 AST 50 H ALT 66 H Alkaline Phosphatase 122 Total Protein 5.5 L Albumin 3.0 L Discharge Plan Discharge Disposition: Home, Self-Care Date of Admission: 10/16/24 12:56 Attending Provider on Discharge: Kendra Gallagher Primary Care Provider: Germán Barlow Condition: Improved Anticipated Discharge Date/Time: 10/18/24 09:10 Discharge Medications: No Action No Known Home Medications Discharge Orders: Discharge Order (Routine); Ordered 10/18/24 Ordered By: Kendra Gallagher Patient Education: Pancreatitis (DC) Additional Instructions: [place], low fat diet (chicken, rice, soup/broth, clear juices, applesauce, sweet potatoes, egg whites dry toast) until bloating and abdominal pain are 90-95% better. Then you can slowly add some fats and see how things go. No work until Wednesday, 10/23. Tylenol for pain as needed. Activity Level: No strenuous activity Diet Detail: per above Follow Up Appointments: Germán Barlow MD [Primary Care Provider] - 10/24/24 2:00 pm ([facility].) [facility]
--- NOTE | 2024-10-18 10:06 | NUTR.NU ---
RDN with diet education related to pancreatitis. Patient admitted with pancreatitis, pt reports first time hospitalized for this. Current weight 154lb 11.2oz; height 5ft 7in; BMI 24.2 kg/m2. Current diet is Regular. Patient reports being able to tolerate solids this morning. RDN visited with patient and whom agreed to receive diet education related to pancreatitis. Discussed foods to include and foods to avoid, limiting to 30 grams of fat per day for the next week or as needed. Education also provided following a low fat diet (about 60 grams/day) long-term. Verbal and written information as well as a sample menu provided from [facility]. Patient verbalized understanding. RDN's contact information was provided and patient was encouraged to contact RDN with questions.
--- NOTE | 2024-10-18 11:25 | PC.SOCIAL ---
Social work note: NILDA received call from Aura with [facility], patient's insurance licensing supervisor [phone], to receive an update. NILDA informed her that patient is discharging today and there aren't any concerns from SW. army manager states she will follow-up with patient at home. NILDA to assist if needs arise.
--- NOTE | 2024-10-18 11:58 | PC.NURSE ---
DC: Pt pleasant, alert, oriented and vitally stable. Pain rated 1-2/10. Pt up independently, tolerates well. Flatus present. Pt states small BM. Regular diet, tolerates well. DC information given to pt and spouse, topics including diet, follow up and weight measures. Pt DC home with spouse at 1015.
== END 2024-10-18 10:15 | disposition home or self-care (01) | DRG 252 ==
LOC: ED 11:44 → MEDSURG 12:05
PROVIDERS: Admitting Provider Family Medicine; Emergency Provider Family Medicine; PCP Family Medicine; Visit Provider Family Medicine
DX: K91.89 Other postprocedural complications and disorders of digestive system (principal); K85.80 Other acute pancreatitis without necrosis or infection; K86.89 Other specified diseases of pancreas; R94.5 Abnormal results of liver function studies
CPT/HCPCS: 36415; 74177; 80048; 80053; 80076; 81001; 83690; 85025; 86140; 87086; 99284; 99285; A9270; J1171; J1885; J2405; J7030; J7120; Q9967

== ENCOUNTER 2025-05-30 13:40 | Outpatient (CLI) | payer BC, SELFPAY ==
--- NOTE | 2025-05-30 15:20 | CRLHL7_ITS ---
For Patients: As a result of the Century Cures Act, medical imaging exams and procedure reports are released immediately into your electronic medical record. You may view this report before your referring provider. If you have questions, please contact your health care provider. INDICATION: BILATERAL SCREENING MAMMOGRAM, ASYMPOTMATIC 55 Y/O FEMALE COMPARISON: 05/16/2024, 05/06/2023, 05/05/2022 TECHNIQUE: Digital mammogram in CC and MLO projections including computer-aided detection (CAD) and tomosynthesis. BREAST COMPOSITION: There are scattered areas of fibroglandular density. FINDINGS: No suspicious findings. ASSESSMENT: BI-RADS 1 Negative RECOMMENDATION: Annual screening mammogram. A lay language report of this examination will be provided to the patient. Dictated by: Tommie Bobo MD @ 05/31/2025 12:02:40 (Electronically Signed)
== END 2025-05-30 13:41 | disposition home or self-care (01) ==
LOC: MAMMO 13:41
PROVIDERS: PCP Family Medicine; Visit Provider Student in an Organized Health Care Education/Training Program
DX: Z12.31 Encounter for screening mammogram for malignant neoplasm of breast (principal); Z11.51 Encounter for screening for human papillomavirus (HPV); Z12.4 Encounter for screening for malignant neoplasm of cervix
CPT/HCPCS: 77063; 77067; 87624; 88175

== ENCOUNTER 2025-05-30 13:41 | Outpatient (CLI) | payer BC, SELFPAY ==
[2025-06-02 06:41] LABS: HPV Source Cervix
[2025-06-05 08:48] LABS: Pap Test Digital Imaging Done
== END 2025-05-30 13:42 | disposition home or self-care (01) ==
PROVIDERS: PCP Family Medicine; Visit Provider Registered Nurse
DX: Z12.4 Encounter for screening for malignant neoplasm of cervix (principal); Z11.51 Encounter for screening for human papillomavirus (HPV)
CPT/HCPCS: 87624; 87625; 88141; 88142; 88175